=== PATIENT | male | born 1965 | race Caucasian/White ===

== ENCOUNTER 2018-04-28 07:03 | Emergency (ER) | payer BC ==
--- NOTE | 2018-04-28 07:39 | Emergency Department Record ---
History of Present Illness - General Chief Complaint: Dizziness Stated Complaint: DIZZINESS Time Seen by Provider: 04/28/18 07:18 Source: Patient, RN notes reviewed Mode of Arrival: Ambulatory - History of Present Illness Initial Comments: spinning sensation at 8 pm last night and returned this morning when he wake up and now slightly better now that he is here in the ED. Patient denies chest pain or headache or URI symptoms or dyspnea and never had this before. PMH MVP( mitral valve prolapse) since 39 years of age. The vertigo is worse rotating his head to the right. Onset/Timin -: Days(s) Timing: Sudden onset Description: Difficulty walking, Lightheadedness, Nausea, Sense of movement History of Same: No Severity: Mild Improves With: Nothing Worsens With: Nothing Associated Symptoms: Denies other symptoms - Nish Coma Scale Eye Response: (4) Open spontaneously Motor Response: (6) Obeys commands Verbal Response: (5) Oriented [place] Total: 15 - Related Data Previous Rx's Medication Instructions Recorded Meclizine HCl [Antivert] 25 mg PO Q8H #30 tablet 04/28/18 Allergies Allergy/AdvReac Type Severity Reaction Status Date / Time No Known Drug Allergies Allergy Verified 04/28/18 07:16 Travel Screening - Travel/Exposure Within Last 30 Days Have you traveled within the last 30 days?: No Review of Systems Reviewed: No additional complaints except as noted below Constitutional: Reports: As per HPI. Denies: Chills, Fever, Malaise, Night sweats, Weakness, Weight change Eyes: Reports: As per HPI. Denies: Eye discharge, Eye pain, Photophobia, Vision change ENT: Reports: As per HPI. Denies: Congestion, Dental pain, Ear pain, Epistaxis , Hearing loss, Throat pain Respiratory: Reports: As per HPI. Denies: Cough, Dyspnea, Hemoptysis, Stridor, Wheezes Cardiovascular: Reports: As per HPI. Denies: Arrhythmia, Chest pain, Dyspnea on exertion, Edema, Murmurs, Orthopnea, Palpitations, Paroxysmal nocturnal dyspnea, Rheumatic Fever, Syncope Endocrine: Reports: As per HPI. Denies: Fatigue, Heat or cold intolerance, Polydipsia, Polyuria Gastrointestinal: Reports: As per HPI. Denies: Abdominal pain, Constipation, Diarrhea, Hematemesis, Hematochezia, Melena, Nausea, Vomiting Genitourinary: Reports: As per HPI. Denies: Dysuria, Frequency, Hematuria, Incontinence, Retention, Testicular pain, Testicular mass, Urgency Musculoskeletal: Reports: As per HPI. Denies: Arthralgia, Back pain, Gout, Joint swelling, Myalgia, Neck pain Skin: Reports: As per HPI. Denies: Bruising, Change in color, Change in hair/ nails, Lesions, Pruritus, Rash Neurological: Reports: As per HPI. Denies: Abnormal gait, Confusion, Headache, Numbness, Paresthesias, Seizure, Tingling, Tremors, Vertigo, Weakness Psychiatric: Reports: As per HPI. Denies: Anxiety, Auditory hallucinations, Depression, Homicidal thoughts, Suicidal thoughts, Visual hallucinations Hematological/Lymphatic: Reports: As per HPI. Denies: Anemia, Blood Clots, Easy bleeding, Easy bruising, Swollen glands Past Medical History - SOCIAL HISTORY Smoking Status: Former smoker Alcohol Use: Occasional Drug Use: None - RESPIRATORY Hx Respiratory Disorders: No - CARDIOVASCULAR Hx Cardio Disorders: Yes Comment:: prolapsed mitral valve - NEURO Hx Neuro Disorders: No - GI Hx GI Disorders: No - Hx Genitourinary Disorders: No - ENDOCRINE Hx Endocrine Disorders: No - MUSCULOSKELETAL Hx Musculoskeletal Disorders: No - PSYCH Hx Psych Problems: No - HEMATOLOGY/ONCOLOGY Hx Hematology/Oncology Disorders: No Family Medical History Any Significant Family History?: No Physical Exam - General General Appearance: Alert, Oriented x3, Cooperative, No acute distress - Head Head exam: Normal inspection - Eye Eye exam: Normal appearance, PERRL Pupils: Normal accommodation - ENT ENT exam: Mucous membranes moist, Normal external ear exam, Normal orophraynx, TM's normal bilaterally, Other (wax in both ears left 75% , right ear 50 %) Ear exam: Normal external inspection. negative: External canal tenderness Nasal Exam: Normal inspection. negative: Discharge, Sinus tenderness Mouth exam: Normal external inspection, Tongue normal Teeth exam: Normal inspection. negative: Dental caries Throat exam: Normal inspection. negative: Tonsillar erythema, Tonsillar exudate - Neck Neck exam: Normal inspection, Full ROM. negative: Tenderness - Respiratory Respiratory exam: Normal lung sounds bilaterally. negative: Respiratory distress - Cardiovascular Cardiovascular Exam: Regular rate, Normal rhythm, Normal heart sounds - GI/Abdominal GI/Abdominal exam: Soft, Normal bowel sounds. negative: Tenderness - Rectal Rectal exam: Deferred - exam: Deferred - Extremities Extremities exam: Normal inspection, Full ROM, Normal capillary refill. negative: Tenderness - Back Back exam: Reports: Normal inspection, Full ROM. Denies: Muscle spasm, Rash noted, Tenderness - Neurological Neurological exam: Alert, Normal gait, Oriented X3, Reflexes normal, Other ( nystagmus and vertigo rotating head to the right) - Psychiatric Psychiatric exam: Normal affect, Normal mood - Skin Skin exam: Dry, Intact, Normal color, Warm Course Vital Signs 04/28/18 07:05 Temperature 98.2 F Pulse Rate 68 Respiratory 20 Rate Blood Pressure 140/108 Pulse Ox 98 Medical Decision Making - Data Complexity MDM Data: Labs Ordered and/or Reviewed, X-Ray Ordered and/or Reviewed (CT head negative), EKG Ordered and/or Reviewed (EKG NSR, No acute changes and some signs of repolarization) - Lab Data Result diagrams: 04/28/18 07:20 04/28/18 07:20 Disposition Clinical Impression: BPV (benign positional vertigo) Qualifiers: Laterality: unspecified laterality Qualified Code(s): H81.10 - Benign paroxysmal vertigo, unspecified ear Disposition: Home, Self-Care Condition: (1) Good Instructions: Benign Paroxysmal Positional Vertigo (ED) Additional Instructions: follow up with family in one week follow up with Dr Bass on [phone] Prescriptions: Meclizine HCl [Antivert] 25 mg PO Q8H #30 tablet Forms: Patient Portal Access Time of Disposition: 10:04 Quality - Quality Measures Quality Measures: N/A - Blood Pressure Screening Does Patient Have Any of the Following: No Blood Pressure Classification: Hypertensive Reading Systolic Measurement: 140 Diastolic Measurement: 108 Screening for High Blood Pressure: < First Hypertensive BP, F/U Documented > [ [id number]] First Hypertensive Follow-up Interventions: Referral to alternative/primary care provider.
[2018-04-28] MEDS ORDERED: MECLIZINE 25 MG TABLET PO ONE (07:47)
[2018-04-28 07:49] LABS: BASO % 0.6 % (0-6); EOS % 2.9 % (0-6); GRAN % 58.7 % (47-80); MEAN CELL VOLUME 90.4 fl (81-97); MEAN CORPUSCULAR HEMOGLOBIN 30.1 pg (27-33); MEAN CORPUSCULAR HGB CONC 33.3 g/dl (32-36); MEAN PLATELET VOLUME 9.7 fl (7.4-10.4); MONO % 13.8 % (0-9); PLATELET COUNT 228 K/uL (130-400); RED BLOOD COUNT 4.98 M/uL (4.40-5.70); RED CELL DISTRIBUTION WIDTH 13.3 % (11.5-14.5); WHITE BLOOD COUNT W/O DIFF 6.8 K/uL (4.2-12.2)
[2018-04-28 08:02] LABS: BLOOD UREA NITROGEN 16 mg/dL (6-20); EST GLOMERULAR FILTRATION RATE > 60 mL/min
[2018-04-28 08:05] LABS: GLUCOSE,RANDOM 111 mg/dL (74-109)
--- NOTE | 2018-04-29 12:27 | CT SCAN REPORT ---
EXAM: CT OF THE BRAIN WITHOUT CONTRAST HISTORY: MENTAL STATUS CHANGE. TECHNIQUE: Sequential axial images were obtained from the foramen magnum to the vertex without contrast administration. FINDINGS: The brain volume is normal. No large territorial infarct, hemorrhage , mass effect, or midline shift. No extraaxial fluid collection. The orbits, paranasal sinuses and mastoid air cells are normal. IMPRESSION: NO ACUTE INTRACRANIAL ABNORMALITIES ARE APPRECIATED. JOB NUMBER: [id number] [facility]
== END 2018-04-28 10:17 | disposition home or self-care (01) ==
LOC: ER 07:03
DX: H81.10 Benign paroxysmal vertigo, unspecified ear (principal); R11.0 Nausea; R26.2 Difficulty in walking, not elsewhere classified; H61.23 Impacted cerumen, bilateral; I34.1 Nonrheumatic mitral (valve) prolapse; Z87.891 Personal history of nicotine dependence
CPT/HCPCS: 70450; 80048; 84484; 85025; 85730; 93005; 93010; 99284